=== PATIENT | female | born 1995 | race Caucasian/White ===

== ENCOUNTER 2017-05-16 21:22 | Inpatient (IN) | payer BC ==
[2017-05-16] MEDS ORDERED: Oxytocin/0.9 % Sodium Chloride 30 UNIT/500 ML BAG IV SCH (23:45)
[2017-05-16] MEDS ORDERED: Lidocaine 1% 50 ML MDV INJECT PRN (23:52)
[2017-05-16] MEDS ORDERED: Sodium Chloride 0.9% 2.5 ML Syringe FLUSH PRN (23:52)
[2017-05-16] MEDS ORDERED: Nalbuphine 10 MG/1 ML Vial IVPUSH PRN (23:52)
[2017-05-16] MEDS ORDERED: Methylergonovine 0.2 MG/1 ML Amp IM PRN (23:52)
[2017-05-16] MEDS ORDERED: Misoprostol 200 MCG Tab PO PRN (23:52)
[2017-05-16] MEDS ORDERED: Butorphanol 1 MG/ML SDV IVPUSH PRN (23:52)
[2017-05-16] MEDS ORDERED: Carboprost Tromethamine 250 MCG/1 ML Amp IM PRN (23:52)
[2017-05-16] MEDS ORDERED: Sodium Chloride 0.9% 10 ML Syringe FLUSH PRN (23:52)
[2017-05-17] MEDS: Lactated Ringers 1,000 ML IV SCH ×3 (00:22→02:32)
[2017-05-17] MEDS ORDERED: fentaNYL 100 MCG/2 ML SDV ONE (02:19)
[2017-05-17] MEDS ORDERED: Ropivacaine HCl/PF 100 ML ONE (02:20)
--- NOTE | 2017-05-17 03:15 | PCM.PREANE ---
Preanesthetic Assessment - Procedure Proposed Procedure: labor epidural, dosing, and continuous infusion start - Anesthesia/Transfusion/Family Hx Anesthesia History: Prior Anesthesia Without Reaction Transfusion History: No Prior Transfusion(s) Intubation History: Unknown - Review of Systems General: Other (active labor) Pulmonary: No Symptoms Cardiovascular: No Symptoms Gastrointestinal: Other (GERD of ) Neurological: No Symptoms (except labor pains) Other: Reports: Anxiety - Physical Assessment NPO Status Date: 05/16/17 NPO Status Time: 20:00 Height: 5 ft 4.8 in Weight: 169 lb ASA Class: 2 Mental Status: Alert & Oriented x3 Airway Class: Mallampati = 1 Dentition: Reports: Normal Dentition Thyro-Mental Finger Breadths: 3 Mouth Opening Finger Breadths: 3 ROM/Head Extension: Full Lungs: Normal Respiratory Effort Cardiovascular: Regular Rate, Regular Rhythm - Lab Values: Laboratory Last Values WBC 19.45 K/uL (4.0-11.0) H 05/17/17 00:33 RBC 3.89 M/uL (4.30-5.90) L 05/17/17 00:33 Hgb 11.3 g/dL (12.0-16.0) L 05/17/17 00:33 Hct 32.8 % (36.0-46.0) L 05/17/17 00:33 MCV 84.3 fL (80.0-98.0) 05/17/17 00:33 MCH 29.0 pg (27.0-32.0) 05/17/17 00:33 MCHC 34.5 g/dL (31.0-37.0) 05/17/17 00:33 RDW Std Deviation 41.0 fl (28.0-62.0) 05/17/17 00:33 RDW Coeff of Ezequiel 14 % (11.0-15.0) 05/17/17 00:33 Plt Count 201 K/uL (150-400) 05/17/17 00:33 MPV 11.70 fL (7.40-12.00) 05/17/17 00:33 Nucleated RBC % 0.0 /100WBC 05/17/17 00:33 Nucleated RBCs # 0 K/uL 05/17/17 00:33 Blood Type O NEGATIVE 05/17/17 00:33 Antibody Screen NEGATIVE 05/17/17 00:33 - Allergies Allergies/Adverse Reactions: Allergies Allergy/AdvReac Type Severity Reaction Status Date / Time No Known Allergies Allergy Verified 05/16/17 21:30 - Blood Blood Available: Yes Product(s) Available: PRBC (T and S) - Anesthesia Plan Pre-Op Medication Ordered: None - Acknowledgements Anesthesia Type Planned: Epidural Pt an Appropriate Candidate for the Planned Anesthesia: Yes Alternatives and Risks of Anesthesia Discussed w Pt/Guardian: Yes Pt/Guardian Understands and Agrees with Anesthesia Plan: Yes PreAnesthesia Questionnaire HEENT History: Reports: Impaired Vision 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: - Past Surgical History HEENT Surgical History: Reports: Oral Surgery - CURRENT (IN HOUSE) MEDS Current Meds: Current Medications Butorphanol Tartrate (Stadol) 1 mg IVPUSH ASDIRECTED PRN PRN Reason: Pain Last Admin: 05/17/17 01:26 Dose: 1 mg Carboprost Tromethamine (Hemabate Ds) 250 mcg IM ASDIRECTED PRN PRN Reason: Post Hemorrhage Lactated Ringer's (Ringers, Lactated) 1,000 mls @ 150 mls/hr IV ASDIRECTED [facility] Last Admin: 05/17/17 02:32 Dose: 150 mls/hr Oxytocin/Sodium Chloride (Oxytocin 30 Unit/500 Ml-Ns) 30 unit in 500 mls @ 999 mls/hr IV ASDIRECTED [facility] Lidocaine HCl (Xylocaine 1%) 50 ml INJECT .ONCE PRN PRN Reason: Laceration repair Methylergonovine Maleate (Methergine) 0.2 mg IM ASDIRECTED PRN PRN Reason: Post Hemorrhage Misoprostol (Cytotec) 200 mcg PO .ONCE PRN PRN Reason: Post Hemorrhage Nalbuphine HCl (Nubain) 10 mg IVPUSH ASDIRECTED PRN PRN Reason: Pain (severe 7-10) Sodium Chloride (Saline Flush) 10 ml FLUSH ASDIRECTED PRN PRN Reason: Keep Vein Open Sodium Chloride (Saline Flush) 2.5 ml FLUSH ASDIRECTED PRN PRN Reason: Keep Vein Open Sterile Water (Sterile Water For Irrigation) 1,000 ml IRR ASDIRECTED PRN PRN Reason: delivery Discontinued Medications Fentanyl (Sublimaze) Confirm Administered Dose 100 mcg .ROUTE .STK-MED ONE Stop: 05/17/17 02:20 Ropivacaine (Naropin 0.2%) Confirm Administered Dose 100 mls @ as directed .ROUTE .[facility] ONE Stop: 05/17/17 02:21
[2017-05-17] MEDS: Water For Irrigation,Sterile 1,000 ML Container IRR PRN ×2 (04:04→04:37)
[2017-05-17] MEDS ORDERED: Acetaminophen 500 MG Tab PO PRN ×2 (04:56)
[2017-05-17] MEDS ORDERED: Benzocaine/Menthol 20%-0.5% Spray 78 GM Cannister TOP PRN (04:56)
[2017-05-17] MEDS ORDERED: Ibuprofen 400 MG Tab PO PRN (04:56)
[2017-05-17] MEDS ORDERED: Lanolin 100% Cream 7 GM Tube TOP PRN (04:56)
[2017-05-17] MEDS ORDERED: Docusate Sodium 100 MG Cap PO PRN (04:56)
[2017-05-17] MEDS ORDERED: oxyCODONE 5 MG Tab PO PRN (04:56)
[2017-05-17] MEDS ORDERED: Witch Hazel Medicated Pads 40/Jar TOP PRN (04:56)
[2017-05-17] MEDS ORDERED: Bisacodyl 10 MG Supp RECTAL PRN (04:56)
--- NOTE | 2017-05-17 07:02 | OR ---
SURGEON: YENIFER TELLO DATE OF PROCEDURE: 05/17/2017 PREOPERATIVE DIAGNOSIS: A 21-year-old, G1, P0, 41 weeks 0 day, admitted in active labor. O negative. GBS negative. POSTOPERATIVE DIAGNOSIS: Status post normal spontaneous vaginal delivery with bilateral labial laceration and second degree perineal laceration, ESTIMATED BLOOD LOSS: 300. ANESTHESIA: Epidural. Local infiltration of perineum. FINDING: A live male delivered at 4:01 a.m. score 9 and 9. Wt: 3550g. The placenta delivered intact via controlled cord traction. Bilateral labial laceration was repaired and second-degree laceration was repaired with 3- [address]-1. INDICATION: She is a 21-year-old, G1, P0, low-risk patient, who came at 41 weeks 0 day in active labor. She was noted to be 5 cm dilated, had a normal labor course, and subsequently became fully dilated. DESCRIPTION OF PROCEDURE: With the patient's full dilatation, the patient was encouraged to push. She had very good pushing effort. She pushed for about 30 minutes. With good pushing effort, the head was delivered. The shoulder was allowed to restitute. Then, the anterior shoulder was delivered followed by the posterior shoulder. There was a cord noted around the neck of the baby. The was delivered and placed on the mother's abdomen. Delayed cord clamping was observed. The infant was warmed on the mother's abdomen and suctioned. The cord was clamped and cut. The placenta was delivered via controlled cord traction. The perineum was inspected and noted to have bilateral laceration, second-degree laceration, that was sutured. The fundus was noted to be firm. Pitocin was started after delivery of the anterior shoulder. The hemostasis was noted after the procedure. The patient tolerated the procedure. Mother was bonding with the . All instruments and pad counts were correct x2. CORNELIUS ABRAHAM /[id number] JONATHAN
--- NOTE | 2017-05-17 07:41 | PCM48HPAN ---
Post Anesthesia Note - EVALUATION WITHIN 48HRS OF ANESTHETIC Vital Signs in Normal Range: Yes Patient Participated in Evaluation: Yes Respiratory Function Stable: Yes Airway Patent: Yes Cardiovascular Function Stable: Yes Hydration Status Stable: Yes Pain Control Satisfactory: Yes Nausea and Vomiting Control Satisfactory: Yes Mental Status Recovered: Yes
--- NOTE | 2017-05-17 08:33 | PCM.SN ---
- Free Text/Narrative Note: Epidural catheter removed intact and local anesthetic and tubing discarded appropriately. RN notified of the removal. Patient in good condition.
[2017-05-17] MEDS: Ibuprofen 800 MG Tab PO PRN ×3 (08:40→21:11)
--- NOTE | 2017-05-18 08:02 | PCM.PNPP ---
<Kizzy Solorzano - Last Filed: 05/18/17 07:59> - General Info Date of Service: 05/18/17 Functional Status: Reports: Pain Controlled, Tolerating Diet, Ambulating, Urinating - Review of Systems General: Denies: Fever, Weakness, Fatigue Pulmonary: Denies: Shortness of Breath, Pleuritic Chest Pain, Cough Cardiovascular: Denies: Chest Pain, Palpitations, Dyspnea on Exertion Gastrointestinal: Denies: Abdominal Pain Genitourinary: Denies: Dysuria Psychiatric: Reports: No Symptoms - General Info Date of Service: 05/18/17 - Patient Data Vital Signs - Most Recent: Last Vital Signs Temp 36.6 C 05/18/17 04:00 Pulse 92 05/18/17 04:00 Resp 18 05/18/17 04:00 BP 116/62 05/18/17 04:00 Pulse Ox 97 05/18/17 04:00 Weight - Most Recent: 169 lb Lab Results - Last 24 Hours: Laboratory Results - last 24 hr 05/18/17 Range/Units 05:15 Hgb 10.6 L (12.0-16.0) g/dL Hct 31.6 L (36.0-46.0) % Med Orders - Current: Current Medications Acetaminophen (Tylenol Extra Strength) 500 mg PO Q4H PRN PRN Reason: Pain Acetaminophen (Tylenol Extra Strength) 1,000 mg PO Q4H PRN PRN Reason: Pain Last Admin: 05/18/17 00:16 Dose: 1,000 mg Benzocaine/Menthol (Dermoplast Pain Relief 20%-0.5% Hackberry) 78 gm TOP ASDIRECTED PRN PRN Reason: Perineal Comfort Measure Last Admin: 05/17/17 21:19 Dose: 1 canister Bisacodyl (Dulcolax) 10 mg RECTAL .ONCE PRN PRN Reason: Constipation Carboprost Tromethamine (Hemabate Ds) 250 mcg IM ASDIRECTED PRN PRN Reason: Post Hemorrhage Docusate Sodium (Colace) 100 mg PO BID PRN PRN Reason: Constipation Emollient Ointment (Lansinoh Hpa) 0 gm TOP ASDIRECTED PRN PRN Reason: Sore Nipples Last Admin: 05/17/17 21:18 Dose: 1 tube Lactated Ringer's (Ringers, Lactated) 1,000 mls @ 150 mls/hr IV [facility] Last Admin: 05/17/17 02:32 Dose: 150 mls/hr Oxytocin/Sodium Chloride (Oxytocin 30 Unit/500 Ml-Ns) 30 unit in 500 mls @ 999 mls/hr IV [facility] Last Admin: 05/17/17 04:03 Dose: 999 mls/hr Ibuprofen (Motrin) 400 mg PO Q4H PRN PRN Reason: Pain Ibuprofen (Motrin) 800 mg PO Q6H PRN PRN Reason: Pain Last Admin: 05/17/17 21:11 Dose: 800 mg Lidocaine HCl (Xylocaine 1%) 50 ml INJECT .ONCE PRN PRN Reason: Laceration repair Last Admin: 05/17/17 04:04 Dose: 50 ml Methylergonovine Maleate (Methergine) 0.2 mg IM ASDIRECTED PRN PRN Reason: Post Hemorrhage Misoprostol (Cytotec) 200 mcg PO .ONCE PRN PRN Reason: Post Hemorrhage Nalbuphine HCl (Nubain) 10 mg IVPUSH ASDIRECTED PRN PRN Reason: Pain (severe 7-10) Oxycodone HCl (Oxycodone) 5 mg PO Q2H PRN PRN Reason: Pain Sodium Chloride (Saline Flush) 10 ml FLUSH ASDIRECTED PRN PRN Reason: Keep Vein Open Sodium Chloride (Saline Flush) 2.5 ml FLUSH ASDIRECTED PRN PRN Reason: Keep Vein Open Sterile Water (Sterile Water For Irrigation) 1,000 ml IRR ASDIRECTED PRN PRN Reason: delivery Last Admin: 05/17/17 04:37 Dose: 1,000 ml Witch Renate (Tucks) 1 pad TOP ASDIRECTED PRN PRN Reason: comfort care Last Admin: 05/17/17 21:18 Dose: 1 tub Discontinued Medications Butorphanol Tartrate (Stadol) 1 mg IVPUSH ASDIRECTED PRN PRN Reason: Pain Last Admin: 05/17/17 01:26 Dose: 1 mg Fentanyl (Sublimaze) Confirm Administered Dose 100 mcg .ROUTE .STK-MED ONE Stop: 05/17/17 02:20 Last Admin: 05/17/17 23:30 Dose: Not Given Ropivacaine (Naropin 0.2%) Confirm Administered Dose 100 mls @ as directed .ROUTE .STK-MED ONE Stop: 05/17/17 02:21 Last Admin: 05/17/17 23:30 Dose: Not Given - Infant Interaction Disposition, : Berk[place] in Room with Family Feeding: Attempted ; Nursed Fair/Poor Support Person: - Recovery Exam Fundal Tone: Firm Fundal Level: At Umbilicus Fundal Placement: Midline Lochia Amount: Scant Lochia Color: Rubra/Red Episiotomy/Laceration: Approximated Bladder Status: Voiding Urinary Elimination: Voided - Exam General: Alert, Oriented Lungs: Clear to Auscultation, Normal Respiratory Effort Cardiovascular: Regular Rate, Regular Rhythm GI/Abdominal Exam: Normal Bowel Sounds, Soft, Non-Tender, No Distention, No Mass , Pelvis Stable Extremities: Normal Inspection, Normal Range of Motion, Non-Tender, Normal Capillary Refill, Pedal Edema (trace) - Problem List & Annotations (1) Vaginal delivery SNOMED Code(s): 467719668 Code(s): O80 - ENCOUNTER FOR FULL-TERM UNCOMPLICATED DELIVERY Status: Acute Current Visit: Yes - Problem List Review Problem List Initiated/Reviewed/Updated: Yes - Assessment Assessment:: PPD#1 from . Minimal pain and lochia. Breast feeding is going well. Discharge home today. - Plan Plan:: Discharge home today. Nothing in the vagina for 6 weeks. Can use OTC ibuprofen/ tylenol as needed for pain. Continue PNV while breast feeding. Instructed patient to call if she develops fever greater than 101 or bleeding through a large pad an hour. F/u with [facility] in 6 weeks. <Ingrid La - Last Filed: 05/18/17 10:05> - Patient Data Vital Signs - Most Recent: Last Vital Signs Temp 36.4 C 05/18/17 09:26 Pulse 102 H 05/18/17 09:26 Resp 16 05/18/17 09:26 BP 118/74 05/18/17 09:26 Pulse Ox 98 05/18/17 09:26 Lab Results - Last 24 Hours: Laboratory Results - last 24 hr 05/18/17 Range/Units 05:15 Hgb 10.6 L (12.0-16.0) g/dL Hct 31.6 L (36.0-46.0) % Med Orders - Current: Current Medications Acetaminophen (Tylenol Extra Strength) 500 mg PO Q4H PRN PRN Reason: Pain Acetaminophen (Tylenol Extra Strength) 1,000 mg PO Q4H PRN PRN Reason: Pain Last Admin: 05/18/17 00:16 Dose: 1,000 mg Benzocaine/Menthol (Dermoplast Pain Relief 20%-0.5% Hackberry) 78 gm TOP ASDIRECTED PRN PRN Reason: Perineal Comfort Measure Last Admin: 05/17/17 21:19 Dose: 1 canister Bisacodyl (Dulcolax) 10 mg RECTAL .ONCE PRN PRN Reason: Constipation Carboprost Tromethamine (Hemabate Ds) 250 mcg IM ASDIRECTED PRN PRN Reason: Post Hemorrhage Docusate Sodium (Colace) 100 mg PO BID PRN PRN Reason: Constipation Emollient Ointment (Lansinoh Hpa) 0 gm TOP ASDIRECTED PRN PRN Reason: Sore Nipples Last Admin: 05/17/17 21:18 Dose: 1 tube Lactated Ringer's (Ringers, Lactated) 1,000 mls @ 150 mls/hr IV [facility] Last Admin: 05/17/17 02:32 Dose: 150 mls/hr Oxytocin/Sodium Chloride (Oxytocin 30 Unit/500 Ml-Ns) 30 unit in 500 [facility]ls [facility] Last Admin: 05/17/17 04:03 Dose: 999 mls/hr Ibuprofen (Motrin) 400 mg PO Q4H PRN PRN Reason: Pain Ibuprofen (Motrin) 800 mg PO Q6H PRN PRN Reason: Pain Last Admin: 05/18/17 09:50 Dose: 800 mg Lidocaine HCl (Xylocaine 1%) 50 ml INJECT .ONCE PRN PRN Reason: Laceration repair Last Admin: 05/17/17 04:04 Dose: 50 ml Methylergonovine Maleate (Methergine) 0.2 mg IM ASDIRECTED PRN PRN Reason: Post Hemorrhage Misoprostol (Cytotec) 200 mcg PO .ONCE PRN PRN Reason: Post Hemorrhage Nalbuphine HCl (Nubain) 10 mg IVPUSH ASDIRECTED PRN PRN Reason: Pain (severe 7-10) Oxycodone HCl (Oxycodone) 5 mg PO Q2H PRN PRN Reason: Pain Sodium Chloride (Saline Flush) 10 ml FLUSH ASDIRECTED PRN PRN Reason: Keep Vein Open Sodium Chloride (Saline Flush) 2.5 ml FLUSH ASDIRECTED PRN PRN Reason: Keep Vein Open Sterile Water (Sterile Water For Irrigation) 1,000 ml IRR ASDIRECTED PRN PRN Reason: delivery Last Admin: 05/17/17 04:37 Dose: 1,000 ml Witch Renate (Tucks) 1 pad TOP ASDIRECTED PRN PRN Reason: comfort care Last Admin: 05/17/17 21:18 Dose: 1 tub Discontinued Medications Butorphanol Tartrate (Stadol) 1 mg IVPUSH ASDIRECTED PRN PRN Reason: Pain Last Admin: 05/17/17 01:26 Dose: 1 mg Fentanyl (Sublimaze) Confirm Administered Dose 100 mcg .ROUTE .STK-MED ONE Stop: 05/17/17 02:20 Last Admin: 05/17/17 23:30 Dose: Not Given Ropivacaine (Naropin 0.2%) Confirm Administered Dose 100 mls @ as directed .ROUTE .STK-MED ONE Stop: 05/17/17 02:21 Last Admin: 05/17/17 23:30 Dose: Not Given - Assessment Assessment:: Patient seen and evaluated independently, agree with above - Plan Plan:: Agree with plan
[2017-05-18] MEDS: Ibuprofen 800 MG Tab PO PRN (09:50)
== END 2017-05-18 12:35 | disposition home or self-care (01) | DRG 560 ==
LOC: MW.OBCHECK 21:22 → MW.OB 21:24 → MW.OBCHECK 23:51 → MW.OB 23:52 → MW.OBCHECK 05-17 00:19 → OBSVTOIN 05-17 04:01
PROVIDERS: ADMIT Obstetrics & Gynecology; ATTEND Obstetrics & Gynecology
PROC: 10E0XZZ Delivery of Products of Conception, External Approach (ICD-10-PCS; principal; 2017-05-17)
DX: O70.1 Second degree perineal laceration during delivery (principal); Z3A.41 41 weeks gestation of pregnancy; Z37.0 Single live birth
CPT/HCPCS: 36415; 51702; 59025; 59409; 85014; 85018; 85027; 86850; 86900; 86901; A9270-GY; J0595; J2590; J7120

== ENCOUNTER 2019-05-04 06:21 | Inpatient (IN) | payer BC ==
[2019-05-04] MEDS ORDERED: Sodium Chloride 0.9% 10 ML Syringe FLUSH PRN (06:47)
[2019-05-04] MEDS ORDERED: Ondansetron 4 MG/2 ML SDV IVPUSH PRN (06:47)
[2019-05-04] MEDS ORDERED: Sodium Chloride 0.9% 2.5 ML Syringe FLUSH PRN (06:47)
[2019-05-04] MEDS ORDERED: Methylergonovine 0.2 MG/1 ML Amp IM PRN (06:47)
[2019-05-04] MEDS ORDERED: Carboprost Tromethamine 250 MCG/1 ML Amp IM PRN (06:47)
[2019-05-04] MEDS ORDERED: Misoprostol 200 MCG Tab PO PRN (06:47)
[2019-05-04] MEDS ORDERED: Sodium Chloride 0.9% 10 ML SDV IV PRN (06:47)
[2019-05-04] MEDS ORDERED: Butorphanol 1 MG/ML SDV IVPUSH PRN (06:47)
[2019-05-04] MEDS ORDERED: Water For Irrigation,Sterile 1,000 ML Container IRR PRN (06:47)
[2019-05-04] MEDS ORDERED: Tranexamic Acid 1,000 MG in Sodium Chloride 0.9% 100 ML IV PRN (06:47)
[2019-05-04] MEDS ORDERED: Lidocaine 1% 50 ML MDV INJECT PRN (06:47)
[2019-05-04] MEDS ORDERED: Nalbuphine 10 MG/1 ML Vial IVPUSH PRN (06:47)
[2019-05-04] MEDS ORDERED: Oxytocin/0.9 % Sodium Chloride 30 UNIT/500 ML BAG IV SCH (07:00)
[2019-05-04] MEDS ORDERED: Ropivacaine HCl/PF 100 ML ONE (07:14)
[2019-05-04] MEDS ORDERED: fentaNYL 100 MCG/2 ML SDV ONE (07:14)
[2019-05-04] MEDS: Lactated Ringers 1,000 ML IV SCH ×2 (07:31→07:46)
--- NOTE | 2019-05-04 07:37 | PCM.PREANE ---
Preanesthetic Assessment - Anesthesia/Transfusion/Family Hx Anesthesia History: Prior Anesthesia Without Reaction Family History of Anesthesia Reaction: No Transfusion History: No Prior Transfusion(s) Intubation History: Unknown - Physical Assessment NPO Status Date: 05/03/19 NPO Status Time: 22:00 Height: 1.63 m Weight: 73.028 kg ASA Class: 1 - Lab Values: Laboratory Last Values WBC 14.25 K/uL (4.0-11.0) H 05/04/19 07:15 RBC 4.25 M/uL (4.30-5.90) L 05/04/19 07:15 Hgb 12.2 g/dL (12.0-16.0) 05/04/19 07:15 Hct 36.3 % (36.0-46.0) 05/04/19 07:15 MCV 85.4 fL (80.0-98.0) 05/04/19 07:15 MCH 28.7 pg (27.0-32.0) 05/04/19 07:15 MCHC 33.6 g/dL (31.0-37.0) 05/04/19 07:15 RDW Std Deviation 42.2 fl (28.0-62.0) 05/04/19 07:15 RDW Coeff of Ezequiel 14 % (11.0-15.0) 05/04/19 07:15 Plt Count 186 K/uL (150-400) 05/04/19 07:15 MPV 11.50 fL (7.40-12.00) 05/04/19 07:15 Nucleated RBC % 0.0 /100WBC 05/04/19 07:15 Nucleated RBCs # 0 K/uL 05/04/19 07:15 - Allergies Allergies/Adverse Reactions: Allergies Allergy/AdvReac Type Severity Reaction Status Date / Time No Known Allergies Allergy Verified 05/04/19 06:46 - Acknowledgements Anesthesia Type Planned: Epidural Pt an Appropriate Candidate for the Planned Anesthesia: Yes Alternatives and Risks of Anesthesia Discussed w Pt/Guardian: Yes Pt/Guardian Understands and Agrees with Anesthesia Plan: Yes PreAnesthesia Questionnaire HEENT History: Reports: Impaired Vision 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: - Past Surgical History HEENT Surgical History: Reports: Oral Surgery - CURRENT (IN HOUSE) MEDS Current Meds: Current Medications Butorphanol Tartrate (Stadol) 1 mg IVPUSH Q1H PRN PRN Reason: Pain Carboprost Tromethamine (Hemabate Ds) 250 mcg IM ASDIRECTED PRN PRN Reason: Post Hemorrhage Lactated Ringer's (Ringers, Lactated) 1,000 mls @ 150 mls/hr IV ASDIRECTED [facility] Last Admin: 05/04/19 07:31 Dose: 999 mls/hr Oxytocin/Sodium Chloride (Oxytocin 30 Unit/500 Ml-Ns) 30 unit in 500 mls @ 555 mls/hr IV TITRATE [facility] Tranexamic Acid 1,000 mg/ (Sodium Chloride) 110 mls @ 660 mls/hr IV ONETIME PRN PRN Reason: Bleeding Lidocaine HCl (Xylocaine 1%) 50 ml INJECT ONETIME PRN PRN Reason: Laceration repair Methylergonovine Maleate (Methergine) 0.2 mg IM ASDIRECTED PRN PRN Reason: Post Hemorrhage Misoprostol (Cytotec) 200 mcg PO ONETIME PRN PRN Reason: Post Hemorrhage Nalbuphine HCl (Nubain) 10 mg IVPUSH Q1H PRN PRN Reason: Pain (severe 7-10) Ondansetron HCl (Zofran) 4 mg IVPUSH Q4H PRN PRN Reason: Nausea/Vomiting Sodium Chloride (Saline Flush) 10 ml FLUSH ASDIRECTED PRN PRN Reason: Keep Vein Open Sodium Chloride (Saline Flush) 2.5 ml FLUSH ASDIRECTED PRN PRN Reason: Keep Vein Open Sodium Chloride (Normal Saline) 10 ml IV ASDIRECTED PRN PRN Reason: IV Use Sterile Water (Sterile Water For Irrigation) 1,000 ml IRR ASDIRECTED PRN PRN Reason: delivery Discontinued Medications Fentanyl (Sublimaze) Confirm Administered Dose 100 mcg .ROUTE .STK-MED ONE Stop: 05/04/19 07:15 Ropivacaine (Naropin 0.2%) Confirm Administered Dose 100 mls @ as directed .ROUTE .STK-MED ONE Stop: 05/04/19 07:15
--- NOTE | 2019-05-04 08:07 | PCM.PRNOTE ---
- Free Text/Narrative Note: Anes Note Patient requests epidural for L&D. Sitting position, level L2-L3 midline approach. Chloraprep scrub to lumbar area. Sterile fenestrated drape applied. Epidural space easily achieved first attempt using KELLI technique. KELLI at 3 cm. Cath threaded 5 cm with ease. Steril clear adhesive dressing applied. Test 0756 3 cc 1.5% lidoe with epi negative. 0800 Load 10 cc 0.2% ropiviciane with 1 mcg/cc fentanyl given in slow divided doses. 0805 Pump started same solution at 8 cc hr with 6 cc q 20 min prn bolus. Time with patient [id number] Eagle Mathew CRNA
[2019-05-04] MEDS ORDERED: Ibuprofen 400 MG Tab PO PRN (10:33)
[2019-05-04] MEDS ORDERED: Docusate Sodium 100 MG Cap PO PRN (10:33)
[2019-05-04] MEDS ORDERED: Acetaminophen 500 MG Tab PO PRN (10:33)
[2019-05-04] MEDS ORDERED: Aluminum Hydroxide/Magnesium Hydroxide/Simethicone Susp 30 ML Cup PO PRN (10:33)
[2019-05-04] MEDS ORDERED: Lanolin 100% Cream 7 GM Tube TOP PRN (10:33)
[2019-05-04] MEDS ORDERED: oxyCODONE 5 MG Tab PO PRN (10:33)
[2019-05-04] MEDS ORDERED: Benzocaine/Menthol 20%-0.5% Spray 78 GM Cannister TOP PRN (10:33)
[2019-05-04] MEDS ORDERED: Witch Hazel Medicated Pads 40/Jar TOP PRN (10:33)
[2019-05-04] MEDS ORDERED: Bisacodyl 10 MG Supp RECTAL PRN (10:33)
--- NOTE | 2019-05-04 10:39 | PCM.OPNOTE ---
- General Post-Op/Procedure Note Date of Surgery/Procedure: 05/04/19 Operative Procedure(s): /1st MLL repaired Findings: Viable male APGARs 8, 9 weight 3960 gm. Spontaneous delivery intact placenta with 3V cord Pre Op Diagnosis: 40/2 week IUP. Labor Post-Op Diagnosis: same Anesthesia Technique: Epidural Primary Surgeon: Delilah Kerns EBL in mLs: 300 Complications: none known Condition: Good Free Text/Narrative:: Dictation [id number]
--- NOTE | 2019-05-04 11:47 | OR ---
SURGEON: Delilah Kerns M.D. DATE OF PROCEDURE: 05/04/2019 PREOPERATIVE DIAGNOSES: 1. 40 and 2 weeks intrauterine . 2. Active labor. POSTOPERATIVE DIAGNOSES: 1. 40 and 2 weeks intrauterine . 2. Active labor. PROCEDURE: Spontaneous vaginal delivery, first-degree midline laceration, repaired. PRIMARY SURGEON: Delilah Kerns M.D. ANESTHESIA: Epidural. ESTIMATED BLOOD LOSS: 300 mL. COMPLICATIONS: Unknown. FINDINGS: Viable male. score of 8 at one minute and 9 at five minutes. Weight of 3950 g. Spontaneous delivery, intact placenta, 3-vessel cord. DISPOSITION: to nursery, mom in LDRP. DESCRIPTION OF PROCEDURE: Kassy is a 23-year-old G2, P1, at 40 and 2 weeks' gestational age, who presented on the morning of 05/04/2019 with regular contractions. On initial examination, she was found to be 4 to 5 cm, was admitted. Routine labs were drawn. IV hydration was initiated. heart tones category 1, 130s, variability. The patient continued to progress, became increasingly uncomfortable, underwent regional anesthesia in the form of epidural. Shortly thereafter, she was evaluated, found to be 9.5 cm, 100% effaced, 0 station. Therefore, amniotomy was performed, clear fluid was returned and progressed to complete. Began pushing efforts, pushed readily to a +3 station, was called for delivery. Upon my arrival, the patient was placed in modified dorsal position, continued with pushing efforts, was able to deliver 's head atraumatically spontaneously, followed by anterior shoulder, posterior shoulder and remaining body without difficulty. The infant's oropharynx and nares bulb suctioned. Infant was handed off to his mother with attending nursing staff at her side. After delay. Cord was clamped x2 and cut. Cord blood was obtained. Light pressure was applied while the placenta was delivered spontaneously intact. Vigorous fundal uterine massage was applied while 30 units of Pitocin was delivered in 500 mL of IV fluid. Upon inspection of cervix, vaginal sidewalls, and perineum, there was found to be a first-degree midline laceration repaired using 3-0 Vicryl in the usual fashion. Uterus remained firm. Hemostasis evident. Sponge count, instrument count, needle count was correct. The patient remained in LDRP, to nursery. SOLBSAR / MODL /[id number]
[2019-05-04] MEDS: Ibuprofen 800 MG Tab PO PRN ×2 (13:18→20:01)
[2019-05-04] MEDS: Acetaminophen 500 MG Tab PO PRN (16:36)
[2019-05-05] MEDS: Acetaminophen 500 MG Tab PO PRN (01:32)
--- NOTE | 2019-05-05 07:15 | PCM.POSTAN ---
POST ANESTHESIA ASSESSMENT - MENTAL STATUS Mental Status: Alert - VITAL SIGNS Vital Signs: Last Vital Signs Temp 36.6 C 05/05/19 04:27 Pulse 83 05/05/19 04:27 Resp 17 05/05/19 04:27 BP 106/61 05/05/19 04:27 Pulse Ox 97 05/05/19 04:27 - RESPIRATORY Respiratory Status: Respiratory Rate WNL - CARDIOVASCULAR CV Status: Pulse Rate WNL - GASTROINTESTINAL GI Status: No Symptoms - POST OP HYDRATION Hydration Status: Adequate & Stable
--- NOTE | 2019-05-05 07:15 | PCM48HPAN ---
Post Anesthesia Note - EVALUATION WITHIN 48HRS OF ANESTHETIC Vital Signs in Normal Range: Yes Patient Participated in Evaluation: Yes Respiratory Function Stable: Yes Airway Patent: Yes Cardiovascular Function Stable: Yes Hydration Status Stable: Yes Pain Control Satisfactory: Yes Nausea and Vomiting Control Satisfactory: Yes Mental Status Recovered: Yes Vital Signs: Last Vital Signs Temp 36.6 C 05/05/19 04:27 Pulse 83 05/05/19 04:27 Resp 17 05/05/19 04:27 BP 106/61 05/05/19 04:27 Pulse Ox 97 05/05/19 04:27
[2019-05-05] MEDS: Ibuprofen 800 MG Tab PO PRN (07:50)
--- NOTE | 2019-05-05 08:30 | PCM.PNPP ---
- General Info Date of Service: 05/05/19 Functional Status: Reports: Pain Controlled, Tolerating Diet, Ambulating, Urinating - Review of Systems General: Denies: Fever, Weakness, Fatigue Pulmonary: Denies: Shortness of Breath Cardiovascular: Denies: Chest Pain, Palpitations, Lightheadedness Gastrointestinal: Denies: Abdominal Pain, Nausea, Vomiting Genitourinary: Denies: Flank Pain Musculoskeletal: Reports: No Symptoms Skin: Reports: No Symptoms Neurological: Reports: No Symptoms Psychiatric: Reports: No Symptoms - General Info Date of Service: 05/05/19 - Patient Data Vital Signs - Most Recent: Last Vital Signs Temp 36.6 C 05/05/19 04:27 Pulse 83 05/05/19 04:27 Resp 17 05/05/19 04:27 BP 106/61 05/05/19 04:27 Pulse Ox 97 05/05/19 04:27 Weight - Most Recent: 73.028 kg I&O - Last 24 Hours: Intake & Output 05/04/19 05/05/19 05/05/19 22:59 06:59 14:59 Intake Total 2 Balance 2 Lab Results - Last 24 Hours: Laboratory Results - last 24 hr 05/04/19 05/05/19 Range/Units 12:42 06:05 Hgb 10.3 L (12.0-16.0) g/dL Hct 31.0 L (36.0-46.0) % Screen NEGATIVE (NEGATIVE) RhIG Candidate? YES Rhogam Indicated YES, BABY RH POS H Med Orders - Current: Current Medications Acetaminophen (Tylenol Extra Strength) 500 mg PO Q4H PRN PRN Reason: Pain Acetaminophen (Tylenol Extra Strength) 1,000 mg PO Q4H PRN PRN Reason: Pain Last Admin: 05/05/19 01:32 Dose: 1,000 mg Al Hydroxide/Mg Hydroxide (Mag-Al Plus) 30 ml PO Q8H PRN PRN Reason: Heartburn Benzocaine/Menthol (Dermoplast Pain Relief 20%-0.5% [place]) 78 gm TOP ASDIRECTED PRN PRN Reason: Perineal Comfort Measure Last Admin: 05/04/19 13:18 Dose: 1 bottle Bisacodyl (Dulcolax) 10 mg RECTAL ONETIME PRN PRN Reason: Constipation Docusate Sodium (Colace) 100 mg PO BID PRN PRN Reason: Constipation Emollient Ointment (Lansinoh Hpa) 0 gm TOP ASDIRECTED PRN PRN Reason: Sore Nipples Last Admin: 05/04/19 13:17 Dose: 1 tube Lactated Ringer's (Ringers, Lactated) 1,000 mls @ 150 mls/hr IV ASDIRECTED DULCE Last Infusion: 05/04/19 12:27 Dose: Infused Oxytocin/Sodium Chloride (Oxytocin 30 Unit/500 Ml-Ns) 30 unit in 500 mls @ 555 mls/hr IV TITRATE [facility] Last Infusion: 05/04/19 11:45 Dose: 0 mls/hr Tranexamic Acid 1,000 mg/ (Sodium Chloride) 110 mls @ 660 mls/hr IV ONETIME PRN PRN Reason: Bleeding Ibuprofen (Motrin) 400 mg PO Q4H PRN PRN Reason: Pain Ibuprofen (Motrin) 800 mg PO Q6H PRN PRN Reason: Pain Last Admin: 05/05/19 07:50 Dose: 800 mg Methylergonovine Maleate (Methergine) 0.2 mg IM ASDIRECTED PRN PRN Reason: Post Hemorrhage Misoprostol (Cytotec) 200 mcg PO ONETIME PRN PRN Reason: Post Hemorrhage Ondansetron HCl (Zofran) 4 mg IVPUSH Q4H PRN PRN Reason: Nausea/Vomiting Oxycodone HCl (Oxycodone) 5 mg PO Q2H PRN PRN Reason: Pain Sodium Chloride (Saline Flush) 10 ml FLUSH ASDIRECTED PRN PRN Reason: Keep Vein Open Sodium Chloride (Saline Flush) 2.5 ml FLUSH ASDIRECTED PRN PRN Reason: Keep Vein Open Sodium Chloride (Normal Saline) 10 ml IV ASDIRECTED PRN PRN Reason: IV Use Witch Renate (Tucks) 1 pad TOP ASDIRECTED PRN PRN Reason: comfort care Last Admin: 05/04/19 17:30 Dose: 1 pad Discontinued Medications Butorphanol Tartrate (Stadol) 1 mg IVPUSH Q1H PRN PRN Reason: Pain Carboprost Tromethamine (Hemabate Ds) 250 mcg IM ASDIRECTED PRN PRN Reason: Post Hemorrhage Fentanyl (Sublimaze) Confirm Administered Dose 100 mcg .ROUTE .STK-MED ONE Stop: 05/04/19 07:15 Ropivacaine (Naropin 0.2%) Confirm Administered Dose 100 mls @ as directed .ROUTE .STK-MED ONE Stop: 05/04/19 07:15 Lidocaine HCl (Xylocaine 1%) 50 ml INJECT ONETIME PRN PRN Reason: Laceration repair Nalbuphine HCl (Nubain) 10 mg IVPUSH Q1H PRN PRN Reason: Pain (severe 7-10) Sterile Water (Sterile Water For Irrigation) 1,000 ml IRR ASDIRECTED PRN PRN Reason: delivery - Interaction Support Person: - Recovery Exam Fundal Tone: Firm Fundal Level: 1 Fingerbreadths Below Umbilicus Fundal Placement: Midline Lochia Amount: Small Lochia Color: Rubra/Red Perineum Description: Edematous Episiotomy/Laceration: Approximated Bladder Status: Nonpalpable, Voiding Urinary Elimination: Not Voiding - Exam General: Alert, Oriented Lungs: Normal Respiratory Effort Cardiovascular: Regular Rate, Regular Rhythm GI/Abdominal Exam: Normal Bowel Sounds, Soft Extremities: Pedal Edema (trace). No: Dolores's Sign Skin: Warm, Dry, Intact Wound/Incisions: Healing Well Neurological: No New Focal Deficit Psy/Mental Status: Alert, Normal Affect, Normal Mood - Problem List & Annotations (1) Vaginal delivery SNOMED Code(s): 018524942 Code(s): O80 - ENCOUNTER FOR FULL-TERM UNCOMPLICATED DELIVERY Status: Acute Current Visit: No - Problem List Review Problem List Initiated/Reviewed/Updated: Yes - My Orders Last 24 Hours: My Active Orders 05/04/19 10:33 Patient Status [ADT] Routine May Shower [RC] ASDIRECTED Notify Provider Vital Signs [RC] ASDIRECTED Up ad Yeimy [RC] ASDIRECTED Vital Signs [RC] PER UNIT ROUTINE Acetaminophen [Tylenol Extra Strength] 1,000 mg PO Q4H PRN Acetaminophen [Tylenol Extra Strength] 500 mg PO Q4H PRN Alum Hydrox/Mag Hydrox/Simeth [Mag-Al Plus] 30 ml PO Q8H PRN Benzocaine/Menthol [Dermoplast Pain Relief 20%-0.5% [place]] 78 gm TOP ASDIRECTED PRN Bisacodyl [Dulcolax] 10 mg RECTAL ONETIME PRN Docusate Sodium [Colace] 100 mg PO BID PRN Ibuprofen [Motrin] 400 mg PO Q4H PRN Ibuprofen [Motrin] 800 mg PO Q6H PRN Lanolin [Lansinoh HPA] See Dose Instructions TOP ASDIRECTED PRN Witch Renate [Tucks] 1 pad TOP ASDIRECTED PRN oxyCODONE 5 mg PO Q2H PRN Assess Lochia [WOMSER] Per Unit Routine Assess Uterine Involution [WOMSER] Per Unit Routine Ice Therapy [OM.PC] Per Unit Routine Perineal Care [OM.PC] Per Unit Routine Peripheral IV Discontinue [OM.PC] Routine Sitz Bath [OM.PC] Per Unit Routine 05/04/19 Lunch Regular Diet [DIET] 05/05/19 08:23 Ready for Discharge [RC] PER UNIT ROUTINE - Assessment Assessment:: PPD 1 status post - Plan Plan:: Patient is doing well overall. Discharge instructions reviewed. Follow up at [facility] 6 weeks. Discharge today.
== END 2019-05-05 12:49 | disposition home or self-care (01) | DRG 560 ==
LOC: MW.OBCHECK 06:21 → MW.OB 06:22 → MW.OBCHECK 06:47 → MW.OB 06:47 → OBSVTOIN 10:12 → MW.OB 20:01
PROVIDERS: ADMIT Obstetrics & Gynecology; ATTEND Obstetrics & Gynecology
PROC: 10E0XZZ Delivery of Products of Conception, External Approach (ICD-10-PCS; principal; 2019-05-04)
PROC: 10907ZC Drainage of Amniotic Fluid, Therapeutic from Products of Conception, Via Natural or Artificial Opening (ICD-10-PCS; 2019-05-04)
PROC: 0HQ9XZZ Repair Perineum Skin, External Approach (ICD-10-PCS; 2019-05-04)
PROC: 3E0R3BZ Introduction of Anesthetic Agent into Spinal Canal, Percutaneous Approach (ICD-10-PCS; 2019-05-04)
DX: O48.0 Post-term pregnancy (principal); O70.0 First degree perineal laceration during delivery; Z37.0 Single live birth; Z3A.40 40 weeks gestation of pregnancy
CPT/HCPCS: 01967; 36415; 36430; 59025; 59409; 85014; 85018; 85027; 85460; 86593; 86850; 86900; 86901; A9270-GY; J2590; J2792; J2795; J3010; J7120